=== PATIENT | female | born 1940 ===

== ENCOUNTER → 2017-08-15 | Outpatient (CLI) | payer MEDICARE, BC ==
[~2017-08-15] MED LIST: AMLO5 PO; ASPI325 PO; ASPI81CH PO; ATOR10; ATOR10 PO; Amlodipine Besyl5 MG PO; CHOL10002 PO; CIME300; CLOP75 PO; COLCRYS0.6 MG PO; CRUTCH2 USE; FAMO20 PO; FERR325 PO; HYDACE5 PO; HYDPAM25 PO; Keflex500 MG PO; LEVSOD75 PO; LEVSOD88 PO; LISHYD1012 PO; LOSARTAN POTASS50 MG PO; MAGOXI400 PO; METO100 PO; METO50 PO; METR500 PO; NITR100CA PO; Norco 5-325 Ta1 EACH PO; OMEP20ER PO; POTA10T PO; PRED20 PO; Percocet 5-3251 EACH PO; Prednisone20 MG PO; SPIR25; Spironolactone25 MG PO; Super B Comple150 MG PO; XARELTO20 MG PO
[2017-08-17 12:23] LABS: HPV Genotype 16 Not Detected (NOTDET); HPV Genotype 18 Not Detected (NOTDET)
[2017-09-02 10:30] LABS: HPV High Risk Other Not Detected (NOTDET)
== END | disposition home or self-care (01) ==
LOC: OLS 14:03
PROVIDERS: Obstetrics & Gynecology Gynecology
DX: Z12.4 Encounter for screening for malignant neoplasm of cervix (principal)
CPT/HCPCS: 87624; G0123

== ENCOUNTER → 2017-10-20 | Outpatient (CLI) | payer MEDICARE, BC ==
[2017-10-20 08:01] LABS: BASOPHILS ABSOLUTE AUTO 0.03 K/mm3 (0.00-0.23); BASOPHILS PERCENT AUTO 1 % (0-2); EOSINOPHILS ABSOLUTE AUTO 0.33 K/mm3 (0.00-0.68); EOSINOPHILS PERCENT AUTO 5 % (0-6); Hematocrit 35.6 % (33.0-51.0); Hemoglobin 12.2 g/dL (11.5-16.0); IMMATURE GRAN ABSOLUTE AUTO 0.02 K/mm3 (0.00-0.10); IMMATURE GRAN PERCENT AUTO 0 % (0-1); LYMPHOCYTES ABSOLUTE AUTO 1.63 K/mm3 (0.84-5.20); LYMPHOCYTES PERCENT AUTO 25 % (21-46); MONOCYTES PERCENT AUTO 8 % (4-13); Mean Corpuscular HGB 32.8 pg (26.0-34.0); Mean Corpuscular HGB Conc 34.3 g/dL (31.5-36.5); Mean Corpuscular Volume 96 fL (80-100); Mean Platelet Volume 9.8 fL (9.1-12.4); NEUTROPHILS ABSOLUTE AUTO 4.14 K/mm3 (1.96-9.15); NEUTROPHILS PERCENT AUTO 62 % (41-73); Platelet Count 268 K/mm3 (150-400); Red Blood Cell Count 3.72 M/mm3 (3.80-5.20); White Blood Cell Count 6.65 K/mm3 (4.00-11.30)
[2017-10-20 08:18] LABS: Calcium, Blood 9.8 mg/dL (8.5-10.1); Creatinine, Blood 1.35 mg/dL (0.40-1.00); Potassium, Blood 4.2 mmol/L (3.5-5.5); Thyroid Stimulating Hormone 1.125 uIU/mL (0.360-4.800)
== END | disposition home or self-care (01) ==
LOC: LAB SHORT 07:51 → LAB EV 07:51
PROVIDERS: General Practice
DX: E03.9 Hypothyroidism, unspecified (principal); G60.9 Hereditary and idiopathic neuropathy, unspecified; N18.3 Chronic kidney disease, stage 3 (moderate)
CPT/HCPCS: 80048; 82607; 84443; 85025

== ENCOUNTER → 2018-07-02 | Outpatient (CLI) | payer MEDICARE, BC ==
[2018-07-02 08:23] LABS: Uric Acid, Urine 39.1 mg/dL (7.5-49.5)
== END ==
LOC: LAB 05:30 → LAB SHORT 05:30 → LAB FUT 06-25 12:50
PROVIDERS: Student in an Organized Health Care Education/Training Program
DX: M10.072 Idiopathic gout, left ankle and foot (principal)
CPT/HCPCS: 81050; 84560

== ENCOUNTER → 2019-01-14 | Outpatient (CLI) | payer MEDICARE, BC ==
[~2019-01-14] MED LIST changes: +LEVSOD50 PO; -LEVSOD75 PO; +ROSU10TA PO
[2019-01-14 12:14] LABS: Adenovirus F 40/41 Not Detected (NOT DETECT); Astrovirus Not Detected (NOT DETECT); Campylobacter Sp Not Detected (NOT DETECT); Cryptosporidium Not Detected (NOT DETECT); Cyclospora Cayetanensis Not Detected (NOT DETECT); E. Coli O157 Not Detected (NOT DETECT); Entamoeba Histolytica Not Detected (NOT DETECT); Enteroaggregative E. coli-EAEC Not Detected (NOT DETECT); Enteropathogenic E. coli-EPEC Not Detected (NOT DETECT); Enterotoxigenic E. coli-ETEC Not Detected (NOT DETECT); Giardia Lamblia Not Detected (NOT DETECT); Norovirus GI/GII Not Detected (NOT DETECT); Plesiomonas Shigelloides Not Detected (NOT DETECT); Salmonella Sp Not Detected (NOT DETECT); Shiga Toxin-prod E. coli-STEC Not Detected (NOT DETECT); Shigella/Enteroin E. coli-EIEC Not Detected (NOT DETECT); Vibrio Cholerae Not Detected (NOT DETECT); Vibrio Sp Not Detected (NOT DETECT); Yersinia Enterocolitica Not Detected (NOT DETECT)
[2019-01-14 12:15] LABS: Rotavirus A Not Detected (NOT DETECT); Sapovirus Not Detected (NOT DETECT)
== END | disposition home or self-care (01) ==
LOC: LAB 10:01 → LAB SHORT 10:01
PROVIDERS: Internal Medicine Gastroenterology
DX: R19.7 Diarrhea, unspecified (principal)
CPT/HCPCS: 0097U

== ENCOUNTER 2019-01-28 11:26 | Day surgery (SDC) | payer MEDICARE, BC ==
[~2019-01-28] VITALS: Ht 162.6 cm; Wt 57.8 kg
[~2019-01-28 11:26] MED LIST changes: -ROSU10TA PO
[2019-01-28] MEDS ORDERED: ROSU10TA PO (11:58)
== END 2019-01-28 13:02 | disposition home or self-care (01) ==
LOC: ORSCSDS 11:26
PROVIDERS: Internal Medicine Gastroenterology
PROC: 0DBB8ZX Excision of Ileum, Via Natural or Artificial Opening Endoscopic, Diagnostic (ICD-10-PCS; principal; 2019-01-28 13:00)
PROC: 0DBE8ZX Excision of Large Intestine, Via Natural or Artificial Opening Endoscopic, Diagnostic (ICD-10-PCS; principal; 2019-01-28 13:00)
PROC: 0DBK8ZX Excision of Ascending Colon, Via Natural or Artificial Opening Endoscopic, Diagnostic (ICD-10-PCS; principal; 2019-01-28 13:00)
DX: R19.7 Diarrhea, unspecified (principal); D12.2 Benign neoplasm of ascending colon; K52.9 Noninfective gastroenteritis and colitis, unspecified; K57.30 Diverticulosis of large intestine without perforation or abscess without bleeding; J44.9 Chronic obstructive pulmonary disease, unspecified; Z87.891 Personal history of nicotine dependence; E03.9 Hypothyroidism, unspecified; Z79.899 Other long term (current) drug therapy; I25.10 Atherosclerotic heart disease of native coronary artery without angina pectoris; I48.91 Unspecified atrial fibrillation; I12.9 Hypertensive chronic kidney disease with stage 1 through stage 4 chronic kidney disease, or unspecified chronic kidney disease; N18.3 Chronic kidney disease, stage 3 (moderate)
CPT/HCPCS: 88305; J2704; J7120

== ENCOUNTER 2019-03-09 18:57 | Emergency (ER) | payer MEDICARE, BC ==
[~2019-03-09] VITALS: Ht 160 cm; Wt 57.6 kg
[~2019-03-09 18:57] MED LIST changes: +ROSU10TA PO
[2019-03-09 19:15] LABS: BASOPHILS ABSOLUTE AUTO 0.03 K/mm3 (0.00-0.23); BASOPHILS PERCENT AUTO 0 % (0-2); EOSINOPHILS ABSOLUTE AUTO 0.19 K/mm3 (0.00-0.68); EOSINOPHILS PERCENT AUTO 2 % (0-6); Hematocrit 38.1 % (33.0-51.0); Hemoglobin 12.5 g/dL (11.5-16.0); IMMATURE GRAN ABSOLUTE AUTO 0.02 K/mm3 (0.00-0.10); IMMATURE GRAN PERCENT AUTO 0 % (0-1); LYMPHOCYTES ABSOLUTE AUTO 2.16 K/mm3 (0.84-5.20); LYMPHOCYTES PERCENT AUTO 24 % (21-46); MONOCYTES ABSOLUTE AUTO 0.79 K/mm3 (0.16-1.47); MONOCYTES PERCENT AUTO 9 % (4-13); Mean Corpuscular HGB 32.4 pg (26.0-34.0); Mean Corpuscular HGB Conc 32.8 g/dL (31.5-36.5); Mean Corpuscular Volume 99 fL (80-100); Mean Platelet Volume 10.1 fL (9.1-12.4); NEUTROPHILS ABSOLUTE AUTO 5.83 K/mm3 (1.96-9.15); NEUTROPHILS PERCENT AUTO 65 % (41-73); Platelet Count 222 K/mm3 (150-400); RDW Coefficient Variation 12.1 % (11.7-14.2); RDW Standard Deviation 43.5 fL (35.1-46.3); Red Blood Cell Count 3.86 M/mm3 (3.80-5.20); White Blood Cell Count 9.02 K/mm3 (4.00-11.30)
[2019-03-09 19:36] LABS: Alanine Aminotransfer (ALT/SGP 19 U/L (12-78); Albumin, Blood 4.2 g/dL (3.4-5.0); Albumin/Globulin Ratio 1.2 (0.8-1.8); Alk Phos 84 U/L (50-136); Anion Gap 7 mmol/L (6-16); Aspartate Aminotrans (AST/SGOT 22 U/L (12-37); Bilirubin, Total 0.7 mg/dL (0.1-1.0); Blood Urea Nitrogen 32 mg/dL (8-24); Bun/Creatinine Ratio 23.9 (12.0-20.0); CO2, Blood 25 mmol/L (21-32); Calcium, Blood 9.7 mg/dL (8.5-10.1); Chloride, Blood 106 mmol/L (98-108); Creatinine, Blood 1.34 mg/dL (0.40-1.00); Globulin, Blood 3.5 g/dL (2.2-4.0); Glomerular Filtration Rate 41 (60-); Glucose, Blood 99 mg/dL (70-99); Potassium, Blood 3.7 mmol/L (3.5-5.5); Sodium, Blood 138 mmol/L (136-145); Total Protein, Blood 7.7 g/dL (6.4-8.2); Troponin I <0.015 ng/mL (0.000-0.040)
== END 2019-03-09 20:58 | disposition home or self-care (01) ==
LOC: ER 18:57
PROVIDERS: Emergency Medicine
DX: S46.912A Strain of unspecified muscle, fascia and tendon at shoulder and upper arm level, left arm, initial encounter (principal); X58.XXXA Exposure to other specified factors, initial encounter; Z88.2 Allergy status to sulfonamides; Z88.8 Allergy status to other drugs, medicaments and biological substances; Z79.899 Other long term (current) drug therapy; I10 Essential (primary) hypertension; E03.9 Hypothyroidism, unspecified; I48.91 Unspecified atrial fibrillation; J44.9 Chronic obstructive pulmonary disease, unspecified; Z87.891 Personal history of nicotine dependence
CPT/HCPCS: 36415; 71046; 80053; 84484; 85025; 93005; 93010; 99285-25; A9270; A9270-GY

== ENCOUNTER → 2020-06-08 | Outpatient (CLI) | payer MEDICARE, BC ==
[~2020-06-08] MED LIST changes: +ALLOPURINOL100 M1 PO; -CHOL10002 PO; +COLESEVELAM HC625 MG PO; +Crestor20 MG PO; +DRON400T PO; +EUTHYROX50 MCG PO; -LEVSOD50 PO; +LOSA25 PO; -LOSARTAN POTASS50 MG PO; +METO25 PO; -ROSU10TA PO; -Super B Comple150 MG PO; +VITAMIN D325 MC3 PO; +Vitamin B Comple1 EA PO; +XARELTO15 MG PO
[2020-06-08 08:09] LABS: Albumin, Blood 4.2 g/dL (3.4-5.0); Albumin/Globulin Ratio 1.4 (0.8-1.8); Bilirubin, Total 0.8 mg/dL (0.1-1.0); Bun/Creatinine Ratio 16.7 (12.0-20.0); Calcium, Blood 9.2 mg/dL (8.5-10.1); Creatinine, Blood 1.98 mg/dL (0.40-1.00); Globulin, Blood 3.1 g/dL (2.2-4.0); Magnesium, Blood 1.3 mg/dL (1.6-2.4); Potassium, Blood 4.3 mmol/L (3.5-5.5); Total Protein, Blood 7.3 g/dL (6.4-8.2)
== END ==
LOC: LAB SHORT 07:54
PROVIDERS: Physician Assistant Medical
DX: R25.2 Cramp and spasm (principal)
CPT/HCPCS: 80053; 83735

== ENCOUNTER → 2020-08-24 | Outpatient (CLI) | payer MEDICARE, BC ==
[2020-08-25 06:03] LABS: Stool Occult Bld Immuno 3 Positive (NEGATIVE)
[2020-08-25 06:04] LABS: Stool Occult Bld Immuno 2 Negative (NEGATIVE)
[2020-08-25 06:05] LABS: Stool Occult Bld Immuno 1 Positive (NEGATIVE)
== END | disposition home or self-care (01) ==
LOC: LAB SHORT 12:10 → LAB 12:10
PROVIDERS: Student in an Organized Health Care Education/Training Program
DX: K92.1 Melena (principal)
CPT/HCPCS: 82274

== ENCOUNTER 2020-09-07 13:52 | Day surgery (SDC) | payer MEDICARE, BC ==
[~2020-09-07] VITALS: Ht 160 cm; Wt 56.6 kg
[~2020-09-07 13:52] MED LIST changes: -ALLOPURINOL100 M1 PO; -COLESEVELAM HC625 MG PO; -Crestor20 MG PO; -DRON400T PO; -EUTHYROX50 MCG PO; -LOSA25 PO; -MAGOXI400 PO; -METO25 PO; -METO50 PO; -Spironolactone25 MG PO; -VITAMIN D325 MC3 PO; -Vitamin B Comple1 EA PO; -XARELTO15 MG PO
== END 2020-09-07 16:11 | disposition home or self-care (01) ==
LOC: ORSCSDS 13:52
PROVIDERS: Internal Medicine Gastroenterology
PROC: 0D568ZZ Destruction of Stomach, Via Natural or Artificial Opening Endoscopic (ICD-10-PCS; principal; 2020-09-07 15:15)
PROC: 0DB88ZX Excision of Small Intestine, Via Natural or Artificial Opening Endoscopic, Diagnostic (ICD-10-PCS; principal; 2020-09-07 15:15)
PROC: 0DB98ZX Excision of Duodenum, Via Natural or Artificial Opening Endoscopic, Diagnostic (ICD-10-PCS; principal; 2020-09-07 15:15)
DX: K92.1 Melena (principal); K22.2 Esophageal obstruction; D64.9 Anemia, unspecified; I12.9 Hypertensive chronic kidney disease with stage 1 through stage 4 chronic kidney disease, or unspecified chronic kidney disease; N18.32 Chronic kidney disease, stage 3b; Z79.01 Long term (current) use of anticoagulants; Z79.899 Other long term (current) drug therapy
CPT/HCPCS: 88305; J2704; J7120

== ENCOUNTER 2020-09-21 09:40 | Observation (INO) | payer MEDICARE, BC ==
[~2020-09-21] VITALS: Ht 160 cm; Wt 56.7 kg
[2020-09-21 10:46] LABS: BASOPHILS ABSOLUTE AUTO 0.02 K/mm3 (0.00-0.23); BASOPHILS PERCENT AUTO 0 % (0-2); EOSINOPHILS PERCENT AUTO 4 % (0-6); Hematocrit 32.2 % (33.0-51.0); IMMATURE GRAN ABSOLUTE AUTO 0.03 K/mm3 (0.00-0.10); IMMATURE GRAN PERCENT AUTO 0 % (0-1); LYMPHOCYTES ABSOLUTE AUTO 1.65 K/mm3 (0.84-5.20); LYMPHOCYTES PERCENT AUTO 22 % (21-46); MONOCYTES ABSOLUTE AUTO 0.62 K/mm3 (0.16-1.47); MONOCYTES PERCENT AUTO 8 % (4-13); Mean Corpuscular HGB 33.1 pg (26.0-34.0); Mean Corpuscular HGB Conc 34.2 g/dL (31.5-36.5); Mean Corpuscular Volume 97 fL (80-100); Mean Platelet Volume 9.6 fL (9.1-12.4); NEUTROPHILS ABSOLUTE AUTO 4.97 K/mm3 (1.96-9.15); NEUTROPHILS PERCENT AUTO 65 % (41-73); Platelet Count 235 K/mm3 (150-400); RDW Coefficient Variation 13.4 % (11.7-14.2); RDW Standard Deviation 47.3 fL (35.1-46.3); Red Blood Cell Count 3.32 M/mm3 (3.80-5.20); White Blood Cell Count 7.59 K/mm3 (4.00-11.30)
[2020-09-21 10:55] LABS: Albumin, Blood 3.7 g/dL (3.4-5.0); Albumin/Globulin Ratio 1.1 (0.8-1.8); Bilirubin, Total 0.6 mg/dL (0.1-1.0); Calcium, Blood 9.7 mg/dL (8.5-10.1); Creatinine, Blood 1.5 mg/dL (0.40-1.00); Globulin, Blood 3.3 g/dL (2.2-4.0); Potassium, Blood 4.4 mmol/L (3.5-5.5)
[2020-09-21 11:04] LABS: Troponin I <0.015 ng/mL (0.000-0.040)
[2020-09-21 11:27] LABS: Source, Urine Voided
[2020-09-21 11:48] LABS: Appearance, Urine Clear (Clear); Bilirubin, Urine Neg (Neg); Blood, Urine 1+ (Neg); Color, Urine Yellow (P-Yellow); Glucose Qualitative, Urine Neg (Neg); Ketones, Urine Neg (Neg); Leukocyte Esterase, Urine 1+ (Neg); Nitrite, Urine Neg (Neg); Protein, Urine Neg (Neg); Urobilinogen, Urine NORM (Normal)
[2020-09-21 12:06] LABS: Bacteria Few /hpf; Squamous Epithelial Cells Few /hpf (Few)
[2020-09-21] MEDS ORDERED: DRON400T PO (13:41)
[2020-09-21] MEDS ORDERED: COLESEVELAM HC625 MG PO (13:41)
[2020-09-21] MEDS ORDERED: XARELTO15 MG PO (13:42)
[2020-09-21] MEDS ORDERED: METO50 PO (13:42)
[2020-09-21] MEDS ORDERED: ALLOPURINOL100 M1 PO (13:43)
[2020-09-21] MEDS ORDERED: Spironolactone25 MG PO (13:43)
[2020-09-21] MEDS ORDERED: FAMO20 PO (13:44)
[2020-09-21] MEDS ORDERED: LOSA25 PO (13:44)
[2020-09-21] MEDS ORDERED: Crestor20 MG PO (13:44)
[2020-09-21] MEDS ORDERED: EUTHYROX50 MCG PO (13:45)
[2020-09-21] MEDS ORDERED: METO25 PO (14:27)
[2020-09-21] MEDS ORDERED: MAGOXI400 PO (14:27)
[2020-09-21] MEDS ORDERED: VITAMIN D325 MC3 PO (14:27)
[2020-09-21] MEDS ORDERED: Vitamin B Comple1 EA PO (14:28)
--- NOTE | 2020-09-21 15:39 | NUR ---
Echocardiogram completed.
--- NOTE | 2020-09-21 19:20 | NUR ---
PT ARRIVED ON FLOOR AT 1650. SHE IS AAOX4. SHE REPORTS AN EPISODE OF SYNCOPE THAT RESULTED IN A GLF. CT UNREMARKABLE. UA BEING CULTURED. PT WITH HX OF COPD, CAD, HTN, A-FIB. CARDIAC DIET. PATENT IV FLUIDS RUNNING. CLIENT IS CONCERNED SHE MAY NOT GET PM MEDICATIONS THIS PASSED ON TO POC RN.
[2020-09-22 05:17] LABS: BASOPHILS ABSOLUTE AUTO 0.03 K/mm3 (0.00-0.23); BASOPHILS PERCENT AUTO 1 % (0-2); EOSINOPHILS ABSOLUTE AUTO 0.29 K/mm3 (0.00-0.68); EOSINOPHILS PERCENT AUTO 5 % (0-6); Hematocrit 30.6 % (33.0-51.0); Hemoglobin 10.2 g/dL (11.5-16.0); IMMATURE GRAN ABSOLUTE AUTO 0.01 K/mm3 (0.00-0.10); IMMATURE GRAN PERCENT AUTO 0 % (0-1); LYMPHOCYTES ABSOLUTE AUTO 1.36 K/mm3 (0.84-5.20); LYMPHOCYTES PERCENT AUTO 22 % (21-46); MONOCYTES ABSOLUTE AUTO 0.55 K/mm3 (0.16-1.47); MONOCYTES PERCENT AUTO 9 % (4-13); Mean Corpuscular HGB 32.2 pg (26.0-34.0); Mean Corpuscular HGB Conc 33.3 g/dL (31.5-36.5); Mean Corpuscular Volume 97 fL (80-100); Mean Platelet Volume 9.3 fL (9.1-12.4); NEUTROPHILS ABSOLUTE AUTO 3.96 K/mm3 (1.96-9.15); NEUTROPHILS PERCENT AUTO 64 % (41-73); Platelet Count 209 K/mm3 (150-400); RDW Coefficient Variation 13.3 % (11.7-14.2); RDW Standard Deviation 46.9 fL (35.1-46.3); Red Blood Cell Count 3.17 M/mm3 (3.80-5.20)
--- NOTE | 2020-09-22 05:25 | NUR ---
SHIFT SUMMARY- PT. A&O, ANXIOUS AND IRRITABLE AT THE START OF THE SHIFT. CONCERNED BEDTIME MEDICATIONS NOT ORDERED BY PHYSICIAN FOR THE NIGHT. CLARIFIED WITH PT. HOME MEDICATIONS AND REASSURED WOULD NOTIFY PHYSICIAN REGARDING BEDTIME MEDS. NOTIFIED HOSPITALIST DR. FRIED, MEDICATIONS ORDERED BY PROVIDER. SCHEDULED MEDS GIVEN W/O DIFFICULTY. ALSO MEDICATED WITH TYLENOL FOR C/O PAIN TO THE L FLANK AND ICE PACK GIVEN. PT. REPORTED GOOD RELIEF. ASLEEP MOST OF THE NIGHT, NO APPARENT DISTRESS NOTED. PT. 1 ASSIST TO BATHROOM, CALLS APPROPRIATELY. DENIED ANY OTHER NEEDS T/O THE NIGHT, VSS. CALL LIGHT WITHIN REACH AND SIDE RAILS UPX2. WILL CONT TO MONITOR.
[2020-09-22 05:53] LABS: Bun/Creatinine Ratio 13.7 (12.0-20.0); Creatinine, Blood 1.39 mg/dL (0.40-1.00); Magnesium, Blood 1.5 mg/dL (1.6-2.4); Phosphorus, Blood 3.4 mg/dL (2.5-4.9)
--- NOTE | 2020-09-22 17:02 | NUR ---
CLIENT [id number]. SBA. CALLS APPROPRIATELY. MAGNESIUM LOW. CLIENT REPORTED BURNING SENSATION ON INFUSION. IV PATENT. PT REQUESTED NEW IV START.THIS RN OFF FLOOR FROM [phone]. ADMITTING SUPERVISOR PLACED NEW IV CATH L HAND. MAGNESIUM INFUSED AND PT DISCHARGED. THIS RN REVIEWED DISCHARGE PAERWORK AND MEDICATION CHANGES. PT ABLE TO TEACH BACK THIS RN. SHE HAD NO QUESTIONS OR CONCERNS. ESCORTED OUT BY SAVANNAH.
--- NOTE | 2020-09-22 17:26 | NUR ---
ADMIT:09.21.20 DISCHARGE: 09/22/20 DX: syncope CC: [email or web address] CHAD CALL: Call Genoveva at home for chad. chad 1 week with Mikey or Khloe. RESIDENCE: home with CAREGIVER: self and DX:chd 3, copd, AFIB, osteoarthritis, see list DME: wrist brace CCM: no record HOME HEALTH: no record SUMMARY: Admit 09/21/20 09/22/20 s/w Genoveva at discharge, PT OT, no recommendations for care. Reviewed Discharge check list and discussed care needs. She did not have any care needs at this time. She is independent for mobility and self-care. Chad to call MON or to follow up and schedule follow up appt. cp 1: Syncope and collapse A/P: Differentials likely includes vasovagal, orthostatic hypotension Patient has had vitals notable for bradycardia in the 40s and 50s We will go ahead and decrease metoprolol to 25 mg p.o. twice daily Echocardiogram, troponins unremarkable
== END 2020-09-22 16:12 | disposition home or self-care (01) ==
LOC: ER 09:40 → MEDS 09:41 → ER 09:41 → MEDS 09:42 → ER 14:31 → MEDS 15:56
PROVIDERS: Emergency Medicine; ADMIT Internal Medicine
DX: R55 Syncope and collapse (principal); W18.30XA Fall on same level, unspecified, initial encounter; Y92.002 Bathroom of unspecified non-institutional (private) residence as the place of occurrence of the external cause; I12.9 Hypertensive chronic kidney disease with stage 1 through stage 4 chronic kidney disease, or unspecified chronic kidney disease; J44.9 Chronic obstructive pulmonary disease, unspecified; N18.30 Chronic kidney disease, stage 3 unspecified; I25.10 Atherosclerotic heart disease of native coronary artery without angina pectoris; E78.5 Hyperlipidemia, unspecified; E03.9 Hypothyroidism, unspecified; M19.90 Unspecified osteoarthritis, unspecified site; I48.0 Paroxysmal atrial fibrillation; K21.9 Gastro-esophageal reflux disease without esophagitis; Z79.01 Long term (current) use of anticoagulants; Z88.2 Allergy status to sulfonamides; Z88.8 Allergy status to other drugs, medicaments and biological substances; Z95.5 Presence of coronary angioplasty implant and graft; Z91.81 History of falling; Z87.891 Personal history of nicotine dependence
CPT/HCPCS: 36415; 70450; 74177; 80048; 80053; 81001; 83735; 83880; 84100; 84443; 84484; 85025; 87086; 93005; 93010; 93306; 96374; 97161; 97530; 99285-25; A9270; G0378; J3475; J7030; Q9967

== ENCOUNTER 2021-09-01 16:46 | Emergency (ER) | payer MEDICARE, BC ==
[~2021-09-01] VITALS: Ht 162.6 cm; Wt 56.6 kg
[~2021-09-01 16:46] MED LIST changes: +ALLOPURINOL100 M1 PO; +COLESEVELAM HC625 MG PO; +Crestor20 MG PO; +DRON400T PO; +EUTHYROX50 MCG PO; +LOSA25 PO; +MAGOXI400 PO; +METO25 PO; +METO50 PO; +Spironolactone25 MG PO; +VITAMIN D325 MC3 PO; +Vitamin B Comple1 EA PO; +XARELTO15 MG PO
[2021-09-01 17:33] LABS: Albumin, Blood 4.3 g/dL (3.4-5.0); Albumin/Globulin Ratio 1.2 (0.8-1.8); Bilirubin, Total 0.9 mg/dL (0.1-1.0); Bun/Creatinine Ratio 16.6 (12.0-20.0); Calcium, Blood 9.6 mg/dL (8.5-10.1); Creatinine, Blood 1.57 mg/dL (0.40-1.00); Globulin, Blood 3.7 g/dL (2.2-4.0); Potassium, Blood 4.6 mmol/L (3.5-5.5)
[2021-09-01 17:47] LABS: BASOPHILS ABSOLUTE AUTO 0.01 K/mm3 (0.00-0.23); BASOPHILS PERCENT AUTO 0 % (0-2); EOSINOPHILS PERCENT AUTO 0 % (0-6); Hematocrit 35.5 % (33.0-51.0); Hemoglobin 12.1 g/dL (11.5-16.0); IMMATURE GRAN ABSOLUTE AUTO 0.07 K/mm3 (0.00-0.10); IMMATURE GRAN PERCENT AUTO 0 % (0-1); LYMPHOCYTES ABSOLUTE AUTO 0.96 K/mm3 (0.84-5.20); LYMPHOCYTES PERCENT AUTO 6 % (21-46); MONOCYTES PERCENT AUTO 4 % (4-13); Mean Corpuscular HGB 33.5 pg (26.0-34.0); Mean Corpuscular HGB Conc 34.1 g/dL (31.5-36.5); Mean Corpuscular Volume 98 fL (80-100); NEUTROPHILS ABSOLUTE AUTO 14.33 K/mm3 (1.96-9.15); NEUTROPHILS PERCENT AUTO 90 % (41-73); Platelet Count 279 K/mm3 (150-400); RDW Coefficient Variation 12.7 % (11.7-14.2); RDW Standard Deviation 45.2 fL (35.1-46.3); Red Blood Cell Count 3.61 M/mm3 (3.80-5.20); White Blood Cell Count 15.97 K/mm3 (4.00-11.30)
[2021-09-01] MEDS ORDERED: Mucinex600 MG PO (19:40)
== END 2021-09-01 19:50 | disposition home or self-care (01) ==
LOC: ER 16:46
PROVIDERS: Physician Assistant
DX: J44.9 Chronic obstructive pulmonary disease, unspecified (principal); I12.9 Hypertensive chronic kidney disease with stage 1 through stage 4 chronic kidney disease, or unspecified chronic kidney disease; N18.30 Chronic kidney disease, stage 3 unspecified; E03.9 Hypothyroidism, unspecified; K21.9 Gastro-esophageal reflux disease without esophagitis; I48.91 Unspecified atrial fibrillation; Z87.891 Personal history of nicotine dependence; Z88.2 Allergy status to sulfonamides; Z88.8 Allergy status to other drugs, medicaments and biological substances; Z79.899 Other long term (current) drug therapy
CPT/HCPCS: 36415; 71275; 80053; 84484; 85025; 93005; 93010; 94640; 94664; 99284-25; Q9967

== ENCOUNTER 2024-05-29 09:01 | Day surgery (SDC) | payer MEDICARE, BC ==
[~2024-05-29] VITALS: Ht 162.6 cm; Wt 49.7 kg
[~2024-05-29 09:01] MED LIST changes: +Balanced Salt Epinephrine Irrigation Solution 500 mL IR SCH; +Lidocaine HCl/Pf 1% 5 ML VIAL XX SCH; +Moxifloxacin HCL 0.5 MG/0.1 ML 0.4MLSYR RIGHTEYE SCH; +Mucinex600 MG PO; +PHENYLEPHRINE\\TROPICAMIDE\\TETRACAINE OPHTHALMIC DILATING SOLN RIGHTEYE PRN; +Povidone-Iodine 450 DROP/30 ML Solution ONE; +Povidone-Iodine 450 DROP/30 ML Solution RIGHTEYE SCH; +Tetracaine HCl/Pf 0.5% Opth Soln 4 ml ONE; +Triamcinolone Inj Susp 40 MG / ML 1ML Vial INJ SCH; +Triamcinolone Inj Susp 40 MG / ML 1ML Vial ONE
[2024-05-29] MEDS ORDERED: Tropicamide 1% Opth Soln 15 ML BTL ONE (09:50)
[2024-05-29] MEDS ORDERED: Diazepam 2 MG Tab ONE (10:07)
[2024-05-29] MEDS ORDERED: PRAV20 (10:10)
--- NOTE | 2024-05-29 10:19 | NUR ---
05/29/24 1019 [place]umn [place] 1006: PER DR PEOPLES VERBAL ORDER FOR 4 MG PO VALIUM NOW
[2024-05-29] MEDS ORDERED: DIAZEPAM2 M2 PO (10:22)
[2024-05-29] MEDS ORDERED: SUPER B-50 COM1 EACH (10:22)
[2024-05-29] MEDS ORDERED: Calcium Carbon500 MG (10:22)
[2024-05-29] MEDS ORDERED: INCRUSE ELLIPTA (10:23)
[2024-05-29 11:15] VITALS: BP 134/58
== END 2024-05-29 11:14 | disposition home or self-care (01) ==
LOC: ORSCSDS 09:01
PROVIDERS: Ophthalmology
PROC: 08RJ3JZ Replacement of Right Lens with Synthetic Substitute, Percutaneous Approach (ICD-10-PCS; principal; 2024-05-29 10:30)
DX: H25.811 Combined forms of age-related cataract, right eye (principal); I12.9 Hypertensive chronic kidney disease with stage 1 through stage 4 chronic kidney disease, or unspecified chronic kidney disease; N18.9 Chronic kidney disease, unspecified; E78.5 Hyperlipidemia, unspecified; I25.10 Atherosclerotic heart disease of native coronary artery without angina pectoris; K21.9 Gastro-esophageal reflux disease without esophagitis; I48.0 Paroxysmal atrial fibrillation; Z79.01 Long term (current) use of anticoagulants; J44.9 Chronic obstructive pulmonary disease, unspecified; Z79.899 Other long term (current) drug therapy; I25.2 Old myocardial infarction
CPT/HCPCS: A9270; J3301; V2632

== ENCOUNTER → 2025-06-15 | Outpatient (CLI) | payer MEDICARE, BC ==
[~2025-06-15] MED LIST changes: -Balanced Salt Epinephrine Irrigation Solution 500 mL IR SCH; +Calcium Carbon500 MG; +DIAZEPAM2 M2 PO; +INCRUSE ELLIPTA; -Lidocaine HCl/Pf 1% 5 ML VIAL XX SCH; -Moxifloxacin HCL 0.5 MG/0.1 ML 0.4MLSYR RIGHTEYE SCH; -PHENYLEPHRINE\\TROPICAMIDE\\TETRACAINE OPHTHALMIC DILATING SOLN RIGHTEYE PRN; +PRAV20; -Povidone-Iodine 450 DROP/30 ML Solution ONE; -Povidone-Iodine 450 DROP/30 ML Solution RIGHTEYE SCH; +SUPER B-50 COM1 EACH; -Tetracaine HCl/Pf 0.5% Opth Soln 4 ml ONE; -Triamcinolone Inj Susp 40 MG / ML 1ML Vial INJ SCH; -Triamcinolone Inj Susp 40 MG / ML 1ML Vial ONE
[2025-06-15 11:00] LABS: BASOPHILS ABSOLUTE AUTO 0.04 K/mm3 (0.00-0.23); BASOPHILS PERCENT AUTO 1 % (0-2); EOSINOPHILS ABSOLUTE AUTO 0.19 K/mm3 (0.00-0.68); EOSINOPHILS PERCENT AUTO 3 % (0-6); Hematocrit 37.0 % (33.0-51.0); Hemoglobin 12.6 g/dL (11.5-16.0); IMMATURE GRAN ABSOLUTE AUTO 0.03 K/mm3 (0.00-0.10); IMMATURE GRAN PERCENT AUTO 0 % (0-1); LYMPHOCYTES ABSOLUTE AUTO 0.98 K/mm3 (0.84-5.20); LYMPHOCYTES PERCENT AUTO 13 % (21-46); MONOCYTES ABSOLUTE AUTO 0.51 K/mm3 (0.16-1.47); MONOCYTES PERCENT AUTO 7 % (4-13); Mean Corpuscular HGB Conc 34.1 g/dL (31.5-36.5); Mean Corpuscular Volume 100 fL (80-100); NEUTROPHILS ABSOLUTE AUTO 5.69 K/mm3 (1.96-9.15); NEUTROPHILS PERCENT AUTO 76 % (41-73); NRBC ABSOLUTE 0.00 K/mm3 (0.00-0.02); NRBC Auto 0.0 /100 WBC (0.0-0.2); Platelet Count 269 K/mm3 (150-400); RDW Coefficient Variation 12.8 % (11.7-14.2); RDW Standard Deviation 46.4 fL (35.1-46.3)
[2025-06-15 11:13] LABS: Alanine Aminotransfer (ALT/SGP 21.0 U/L (12-78); Albumin, Blood 4.4 g/dL (3.4-5.0); Albumin/Globulin Ratio 1.3 (0.8-1.8); Anion Gap 15.0 mmol/L (3-11); Aspartate Aminotrans (AST/SGOT 21.0 U/L (12-37); Bilirubin, Total 0.8 mg/dL (0.1-1.0); Blood Urea Nitrogen 29.0 mg/dL (8-24); CO2, Blood 26.0 mmol/L (21-32); Calcium, Blood 9.7 mg/dL (8.5-10.1); Chloride, Blood 103.0 mmol/L (98-108); Creatinine, Blood 1.85 mg/dL (0.40-1.00); Globulin, Blood 3.5 g/dL (2.2-4.0); Glucose, Blood 92.0 mg/dL (70-99); Potassium, Blood 4.6 mmol/L (3.5-5.5); Sodium, Blood 139.0 mmol/L (136-145); Total Protein, Blood 7.9 g/dL (6.4-8.2)
== END ==
LOC: LAB SHORT 10:57 → LAB 10:57
PROVIDERS: Physician Assistant
DX: R10.31 Right lower quadrant pain (principal); N39.0 Urinary tract infection, site not specified
CPT/HCPCS: 80053; 85025; 87077; 87086; 87186

== ENCOUNTER → 2025-06-15 | Outpatient (CLI) | payer MEDICARE, BC | LOC: LAB 12:07 → LAB SHORT 12:07 | DX: N39.0 Urinary tract infection, site not specified (principal) | CPT/HCPCS: 87077; 87086; 87186 ==